=== PATIENT | female | born 1955 | race Caucasian/White ===

== ENCOUNTER → 2017-02-27 | Outpatient (CLI) | payer BC ==
--- NOTE | 2017-02-27 23:06 | MR ---
EXAMINATION TYPE: MR lumbar spine wo con DATE OF EXAM: 02/27/2017 COMPARISON: NONE HISTORY: LBP, RLE radic, no prior surgery/trauma TECHNIQUE: Multiplanar, multisequence images of the lumbar spine were acquired. The lumbar vertebra have normal alignment. There is mild narrowing of the disc spaces throughout the lumbar spine. There is no compression fracture. Posterior elements are intact. Lumbar nerve roots carlos manuel ear normal. There is a Schmorl node in the superior endplate of L3 vertebral body. There is no lumbar paraspinal mass. I see no focal bone destruction. There is hypertrophic anterior spurring at T11-12. IMPRESSION: Mild spondylotic changes. No fracture. No spinal stenosis.
== END | disposition home or self-care (01) ==
LOC: RADMRIMAIN 19:47
PROVIDERS: ATTEND Family Medicine
DX: M47.26 Other spondylosis with radiculopathy, lumbar region (principal)
CPT/HCPCS: 72148